=== PATIENT | female | born 1955 | race Caucasian/White ===

== ENCOUNTER 2016-08-24 14:29 | Inpatient (IN) | payer MEDICAID, OTHER ==
[~2016-08-24] VITALS: Ht 167.6 cm; Wt 180.4 kg
[~2016-08-24 14:29] MED LIST: BISO5TAB23; FURO40TA; INSUPOW; NORVAS
[2016-08-24] MEDS ORDERED: SODIUM CHLORIDE 0.9% 500 ML IV ONE (15:15)
[2016-08-24] MEDS ORDERED: LEVOFLOXACIN 500MG 100 ML IV ONE (15:15)
[2016-08-24] MEDS ORDERED: SODIUM CHLORIDE 0.9% 1,000 ML IV SCH (15:28)
[2016-08-24] MEDS ORDERED: LORazepam 0.5 MG TAB PO PRN (15:30)
[2016-08-24] MEDS ORDERED: OSELTAMIVIR 75 MG CAP PO ONE (15:30)
[2016-08-24] MEDS ORDERED: LACTULOSE 20Gm/30ML SOLN PO PRN (15:30)
[2016-08-24] MEDS ORDERED: DEXTROSE (50%) 50ML SYRG IV PRN (15:30)
[2016-08-24] MEDS ORDERED: TEMAZEPAM 15 MG CAP PO PRN (15:30)
[2016-08-24] MEDS ORDERED: NITROGLYCERIN 0.4 MG SL TAB SL PRN (15:30)
[2016-08-24] MEDS ORDERED: ALBUTEROL SULF 2.5 MG/0.5ML(0.5%) NEB SOLN NEB PRN (15:30)
[2016-08-24] MEDS ORDERED: cefTRIAXone 1GM/50ML D5W 50 ML IV ONE (15:30)
[2016-08-24] MEDS ORDERED: MORPHINE SULF INJ 2 MG/ML SYRINGE 1ML IV PRN ×2 (15:30)
[2016-08-24] MEDS ORDERED: ENOXAPARIN SOD 40 MG/0.4 ML SYRINGE SC SCH (15:41)
[2016-08-24 16:36] LABS: Basophils # (auto) 0 uL; Eosinophils # (auto) 0 uL; Hematocrit 38.8 % (36.0-46.0); Hemoglobin 13.2 g/dL (12.2-16.2); Lymphocytes # (auto) 0.2 uL; Lymphocytes % (auto) 2.3 % (10.0-50.0); Mean Corpuscular Hemoglobin 30.9 pg (28.0-32.0); Mean Corpuscular Hgb Conc. 33.9 g/dL (32.0-36.0); Mean Platelet Volume 9.4 fL (7.4-10.4); Monocytes # (auto) 0.1 uL; Monocytes % (auto) 1.7 % (0.0-12.0); Neutrophils # (auto) 7.8 uL; Platelet Count (auto) 155 10^3/uL (140-450); Red Cell Distribution Width 13.9 % (11.6-16.0); White Blood Cell 8.2 10^3/uL (4.4-10.8)
[2016-08-24 16:46] LABS: Albumin 3.1 g/dL (3.4-5.0); BUN/Creatinine Ratio 8.4; Calcium 8.3 mg/dL (8.5-10.1); Lactic Acid 5.4 mmol/L (0.4-2.0); Magnesium 1.5 mg/dL (1.6-2.6); Potassium 3.3 mmol/L (3.5-5.1)
[2016-08-24 16:50] LABS: Amylase 31 U/L (25-115)
[2016-08-24 16:51] LABS: Bilirubin, Total 0.7 mg/dL (0.2-1.0); Total Protein 6.9 g/dL (6.4-8.2)
[2016-08-24 17:02] LABS: B-Type Natriuretic Peptide 302.13 pg/mL (0-100); Temperature: 22.7 C (20.0-25.0)
[2016-08-24 17:13] LABS: REFLEX LACTIC ACID YES OR NO YES
[2016-08-24] MEDS: ACCU-CHEK COMFORT CURVE STRIP VI SCH ×2 (17:42→22:34)
[2016-08-24] MEDS: InsuLIN REG 1unit/0.01ml Soln (100units/ml) SC SCH ×2 (17:45→22:34)
[2016-08-24] MEDS ORDERED: BENA20TA4 PO (18:08)
[2016-08-24] MEDS ORDERED: METO25TA62 PO (18:08)
[2016-08-24] MEDS ORDERED: INSUINJ IJ (18:08)
[2016-08-24] MEDS ORDERED: ASPI81CH43 PO (18:08)
[2016-08-24] MEDS ORDERED: INSUINJ49 SC (18:08)
[2016-08-24] MEDS: AZITHROMYCIN 500MG/D5W 250ML 250 ML IV SCH (18:10)
[2016-08-24] MEDS: ALBUTEROL SULF 2.5 MG/0.5ML(0.5%) NEB SOLN NEB SCH (18:59)
[2016-08-24] MEDS ORDERED: ASPirin 81 mg TAB PO ONE (19:15)
[2016-08-24] MEDS ORDERED: FUROSEMIDE 20 MG/2 ML VIAL IV ONE (19:45)
[2016-08-24 21:15] LABS: Lactic Acid 3.6 mmol/L (0.4-2.0)
[2016-08-24 21:16] LABS: REFLEX LACTIC ACID YES OR NO NO
[2016-08-24 22:00] VITALS: BP 100/42
[2016-08-24] MEDS ORDERED: OSELTAMIVIR 75 MG CAP PO SCH (22:00)
[2016-08-24] MEDS: BENAZEPRIL HCL 10 MG TAB PO SCH (22:00)
[2016-08-24] MEDS ORDERED: CARVEDILOL 3.125 MG TAB PO SCH (22:00)
[2016-08-24] MEDS: POTASSIUM CHL 20 Meq TABLET PO SCH (22:08)
[2016-08-24] MEDS: SODIUM CHLOR 0.9% PF (SALINE LOCK) 10ML VIAL IV SCH (22:24)
[2016-08-24] MEDS: METOPROLOL SUCCINATE XL 50 MG TAB PO SCH (22:28)
[2016-08-24 23:02] VITALS: BP 100/42
[2016-08-25] VITALS (51 sets, daily range): BP systolic 75–151; BP diastolic 32–114
[2016-08-25] MEDS: ALBUTEROL SULF 2.5 MG/0.5ML(0.5%) NEB SOLN NEB SCH ×3 (00:25→11:50)
[2016-08-25 01:01] LABS: Hematocrit 38.7 % (36.0-46.0); Hemoglobin 13.1 g/dL (12.2-16.2)
[2016-08-25] MEDS ORDERED: ALBUTEROL SULF 2.5 MG/0.5ML(0.5%) NEB SOLN ONE (01:14)
[2016-08-25] MEDS ORDERED: ALBUTEROL SULF 2.5 MG/0.5ML(0.5%) NEB SOLN NEB ONE (01:30)
[2016-08-25] MEDS ORDERED: methylPREDNISolone SOD SUCC 125 MG/2 ML VL IV ONE (01:30)
[2016-08-25] MEDS ORDERED: methylPREDNISolone SOD SUCC 125 MG/2 ML VL ONE (01:42)
[2016-08-25] MEDS ORDERED: ETOMIDATE (2MG/ML) 20ML VIAL IV ONE ×2 (03:03→03:15)
[2016-08-25] MEDS ORDERED: SUCCINYLCHOLINE CHLORIDE 20 MG/ML 10ML VIAL IV ONE ×2 (03:04→03:15)
[2016-08-25] MEDS ORDERED: MIDAZOLAM DRIP 100 mg/100mL NS 100 ML IV ONE ×2 (03:20→06:19)
[2016-08-25] MEDS ORDERED: MIDAZOLAM INJECTION 20 MG in SODIUM CHL 0.9% 36 ML IV ONE ×2 (03:30→07:45)
[2016-08-25] MEDS: SODIUM CHLOR 0.9% PF (SALINE LOCK) 10ML VIAL IV SCH ×3 (06:00→21:41)
[2016-08-25 06:24] LABS: Hematocrit 36.6 % (36.0-46.0); Hemoglobin 12.5 g/dL (12.2-16.2)
[2016-08-25 06:37] LABS: Albumin 2.8 g/dL (3.4-5.0); BUN/Creatinine Ratio 9.2; Bilirubin, Total 0.8 mg/dL (0.2-1.0); Calcium 7.7 mg/dL (8.5-10.1); Potassium 4.2 mmol/L (3.5-5.1); Total Protein 6.3 g/dL (6.4-8.2)
[2016-08-25] MEDS ORDERED: SODIUM BICARBONATE 8.4 % INJ 50ML VIAL IV ONE (07:00)
[2016-08-25] MEDS: ACCU-CHEK COMFORT CURVE STRIP VI SCH ×5 (07:05→22:03)
[2016-08-25] MEDS: InsuLIN REG 1unit/0.01ml Soln (100units/ml) SC SCH ×2 (07:11→12:09)
[2016-08-25] MEDS: MIDAZOLAM DRIP 100 mg/100mL NS 100 ML IV SCH (07:40)
[2016-08-25] MEDS ORDERED: NOREPINEPHRINE BITARTRATE 250 ML IV ONE (07:56)
[2016-08-25] MEDS: NOREPINEPHRINE BITARTRATE 250 ML IV SCH ×2 (08:00→23:11)
[2016-08-25 08:07] LABS: B-Type Natriuretic Peptide 306.17 pg/mL (0-100)
[2016-08-25 08:28] LABS: Urine Bilirubin Negative (Negative); Urine Color Yellow (Yellow); Urine Glucose Normal (Normal); Urine Hyaline Cast MOD /lpf (0 - 2); Urine Ketone Negative (Negative); Urine Mucus FEW (None Seen); Urine Nitrite Negative (Negative); Urine RBC 4 /hpf (0 - 4); Urine Squamous Epithelial Cell MOD /hpf (<5); Urine Urobilinogen Normal (Negative); Urine WBC Clumps PRESENT /hpf (None Seen)
[2016-08-25 08:31] LABS: Urine Blood 1+ /uL (Negative)
[2016-08-25] MEDS ORDERED: cefTRIAXone 1GM/50ML D5W 50 ML IV SCH (09:00)
[2016-08-25] MEDS: FUROSEMIDE 40 MG/4 ML VIAL IV SCH ×2 (10:00→11:47)
[2016-08-25] MEDS ORDERED: SODIUM CHLORIDE 0.9% 1,000 ML IV SCH (10:15)
[2016-08-25] MEDS: ASPirin 81 mg TAB PO SCH (10:30)
[2016-08-25] MEDS: AZITHROMYCIN 500MG/D5W 250ML 250 ML IV SCH (10:30)
[2016-08-25] MEDS: POTASSIUM CHL 20 Meq TABLET PO SCH (10:30)
[2016-08-25] MEDS: PANTOPRAZOLE 40 MG TAB PO SCH (10:31)
[2016-08-25] MEDS: BENAZEPRIL HCL 10 MG TAB PO SCH ×2 (10:31→21:41)
[2016-08-25] MEDS: ENOXAPARIN SOD 30 MG/0.3 ML SYRINGE SC SCH (10:31)
[2016-08-25] MEDS: METOPROLOL SUCCINATE XL 50 MG TAB PO SCH (10:31)
[2016-08-25] MEDS: NITROGLYCERIN 0.2MG/HR TOPICAL PATCH TD SCH (10:31)
[2016-08-25] MEDS: methylPREDNISolone SOD SUCC 40 MG/ML VL IV SCH ×2 (10:38→21:41)
[2016-08-25] MEDS ORDERED: SODIUM CHLORIDE 0.9% 500 ML IV ONE ×2 (11:00→18:45)
[2016-08-25] MEDS: POTASSIUM CHL 10% (20 MEQ/15ML) ORAL SOLN PO SCH (11:48)
[2016-08-25] MEDS: ALBUMIN 25% 100 ML IV SCH ×2 (11:48→12:00)
[2016-08-25] MEDS: fentaNYL Drip 2500mCg/250mlNS 250 ML IV SCH (14:00)
[2016-08-25 14:07] LABS: INR 1.25 (0.9-1.15); Prothrombin Time 12.9 sec (9.37-12.3)
[2016-08-25] MEDS ORDERED: ALBUTEROL SULF 2.5 MG/0.5ML(0.5%) NEB SOLN NEB SCH (15:00)
[2016-08-25 15:09] LABS: REFLEX LACTIC ACID YES OR NO YES
[2016-08-25] MEDS: PIPERACILLIN-TAZOB 3.375GM 100 ML IV SCH ×2 (16:25→19:53)
[2016-08-25] MEDS: ACETAMINOPHEN 500 MG TAB PO PRN (16:28)
[2016-08-25] MEDS: SODIUM CHLORIDE 0.9% 1,000 ML IV SCH (18:00)
[2016-08-25] MEDS ORDERED: DEXTROSE (50%) 50ML SYRG IV PRN ×4 (18:45→23:30)
[2016-08-25] MEDS ORDERED: InsuLIN REG 1unit/0.01ml Soln (100units/ml) IV ONE (18:45)
[2016-08-25] MEDS: PROPOFOL 100 ML IV SCH (19:19)
[2016-08-25 19:28] LABS: Lactic Acid 2.9 mmol/L (0.4-2.0)
[2016-08-25 19:29] LABS: REFLEX LACTIC ACID YES OR NO NO
[2016-08-25] MEDS: LINEZOLID 600MG/300ML 300 ML IV SCH (19:43)
[2016-08-25] MEDS ORDERED: InsuLIN R (HUMAN) 100 UNITS in SODIUM CHL 0.9% 99 ML IV SCH ×3 (20:42→23:19)
[2016-08-25] MEDS ORDERED: ACCU-CHEK COMFORT CURVE STRIP VI SCH (23:00)
[2016-08-26] VITALS (105 sets, daily range): BP systolic 77–248; BP diastolic 36–248
[2016-08-26] MEDS ORDERED: InsuLIN REG 1unit/0.01ml Soln (100units/ml) SC SCH
[2016-08-26] MEDS ORDERED: ACCU-CHEK COMFORT CURVE STRIP VI SCH ×2
[2016-08-26] MEDS ORDERED: DEXTROSE (50%) 50ML SYRG IV PRN (00:15)
[2016-08-26] MEDS: ALBUTEROL SULF 2.5 MG/0.5ML(0.5%) NEB SOLN NEB SCH ×7 (00:37→18:22)
[2016-08-26] MEDS: IPRATROPIUM BROM 0.5 MG/2.5ML INH SOL NEB SCH ×4 (00:37→18:22)
[2016-08-26] MEDS: InsuLIN R (HUMAN) 100 UNITS in SODIUM CHL 0.9% 99 ML IV SCH ×5 (01:00→14:28)
[2016-08-26] MEDS: SODIUM CHLORIDE 0.9% 1,000 ML IV SCH ×3 (01:00→16:00)
[2016-08-26] MEDS: ACCU-CHEK COMFORT CURVE STRIP VI SCH ×23 (01:21→22:53)
[2016-08-26] MEDS: PIPERACILLIN-TAZOB 3.375GM 100 ML IV SCH ×2 (01:49→07:57)
[2016-08-26] MEDS: MIDAZOLAM DRIP 100 mg/100mL NS 100 ML IV SCH (03:56)
[2016-08-26 04:20] LABS: Hematocrit 37.1 % (36.0-46.0); Hemoglobin 13.1 g/dL (12.2-16.2); Mean Corpuscular Hemoglobin 32.3 pg (28.0-32.0); Mean Corpuscular Hgb Conc. 35.4 g/dL (32.0-36.0); Mean Corpuscular Volume 91.4 fL (80.0-100.0); Mean Platelet Volume 9.2 fL (7.4-10.4); Platelet Count (auto) 151 10^3/uL (140-450); Red Cell Distribution Width 14.2 % (11.6-16.0); SUSPECT VIEW TRANSMISSION; White Blood Cell 15.2 10^3/uL (4.4-10.8)
[2016-08-26] MEDS: LINEZOLID 600MG/300ML 300 ML IV SCH ×2 (04:24→17:16)
[2016-08-26 04:26] LABS: Metamyelocytes % 0; Myelocytes % 0; Promyelocytes % 0; Reactive Lymphocytes 0
[2016-08-26 04:54] LABS: Albumin 2.8 g/dL (3.4-5.0); Calcium 6.5 mg/dL (8.5-10.1); Potassium 4.1 mmol/L (3.5-5.1)
[2016-08-26 04:56] LABS: BUN/Creatinine Ratio 12.3
[2016-08-26 04:59] LABS: Bilirubin, Total 0.8 mg/dL (0.2-1.0); Total Protein 6.3 g/dL (6.4-8.2)
[2016-08-26 05:06] LABS: Burr Cells FEW; Platelet Estimate Adequate
[2016-08-26] MEDS: SODIUM CHLOR 0.9% PF (SALINE LOCK) 10ML VIAL IV SCH ×3 (06:10→21:59)
[2016-08-26] MEDS: AMIODARONE HCL 900 MG in DEXTROSE 500 ML IV SCH ×4 (06:42→22:00)
[2016-08-26] MEDS ORDERED: AMIODARONE HCL 150 MG in D5W 5% 100 ML IV ONE (06:45)
[2016-08-26] MEDS: METOPROLOL SUCCINATE XL 50 MG TAB PO SCH (07:41)
[2016-08-26] MEDS: BENAZEPRIL HCL 10 MG TAB PO SCH ×2 (07:42→22:00)
[2016-08-26] MEDS: NITROGLYCERIN 0.2MG/HR TOPICAL PATCH TD SCH (07:42)
[2016-08-26] MEDS: PANTOPRAZOLE 40 MG TAB PO SCH (07:57)
[2016-08-26] MEDS: ASPirin 81 mg TAB PO SCH (07:58)
[2016-08-26] MEDS: ENOXAPARIN SOD 30 MG/0.3 ML SYRINGE SC SCH (08:00)
[2016-08-26] MEDS: methylPREDNISolone SOD SUCC 40 MG/ML VL IV SCH ×2 (08:00→21:59)
[2016-08-26] MEDS: FUROSEMIDE 40 MG/4 ML VIAL IV SCH (08:00)
[2016-08-26] MEDS: POTASSIUM CHL 10% (20 MEQ/15ML) ORAL SOLN PO SCH (08:01)
[2016-08-26] MEDS: PROPOFOL 100 ML IV SCH (08:01)
[2016-08-26] MEDS: fentaNYL Drip 2500mCg/250mlNS 250 ML IV SCH (10:22)
[2016-08-26] MEDS ORDERED: PIPERACILLIN-TAZOB 2.25GM 50 ML IV SCH (12:00)
[2016-08-26] MEDS ORDERED: CALCIUM CHL 100MG/ML 1,000 MG in D5W 5% 100 ML IV ONE (12:30)
[2016-08-26] MEDS: PIPERACILLIN-TAZOB 2.25GM 50 ML IV SCH ×2 (14:31→19:41)
[2016-08-26 19:19] LABS: Calcium 6.9 mg/dL (8.5-10.1); Potassium 4.2 mmol/L (3.5-5.1)
[2016-08-27] VITALS (107 sets, daily range): BP systolic 84–166; BP diastolic 34–94
[2016-08-27] MEDS: IPRATROPIUM BROM 0.5 MG/2.5ML INH SOL NEB SCH ×4 (00:17→18:56)
[2016-08-27] MEDS: ACCU-CHEK COMFORT CURVE STRIP VI SCH ×11 (01:00→22:00)
[2016-08-27] MEDS: SODIUM CHLORIDE 0.9% 1,000 ML IV SCH ×3 (02:07→22:00)
[2016-08-27] MEDS: PIPERACILLIN-TAZOB 2.25GM 50 ML IV SCH ×4 (02:07→19:52)
[2016-08-27 03:48] LABS: Hematocrit 36.5 % (36.0-46.0); Hemoglobin 12.2 g/dL (12.2-16.2); Mean Corpuscular Hemoglobin 30.6 pg (28.0-32.0); Mean Corpuscular Hgb Conc. 33.4 g/dL (32.0-36.0); Mean Corpuscular Volume 91.4 fL (80.0-100.0); Mean Platelet Volume 9.1 fL (7.4-10.4); Platelet Count (auto) 122 10^3/uL (140-450); Red Cell Distribution Width 14.6 % (11.6-16.0); SUSPECT VIEW TRANSMISSION; White Blood Cell 13.7 10^3/uL (4.4-10.8)
[2016-08-27] MEDS: PROPOFOL 100 ML IV SCH ×2 (04:06→23:25)
[2016-08-27 04:29] LABS: Albumin 2.3 g/dL (3.4-5.0); BUN/Creatinine Ratio 11.9; Bilirubin, Total 0.6 mg/dL (0.2-1.0); Calcium 6.9 mg/dL (8.5-10.1); Potassium 4.2 mmol/L (3.5-5.1); Total Protein 5.9 g/dL (6.4-8.2)
[2016-08-27] MEDS: LINEZOLID 600MG/300ML 300 ML IV SCH ×2 (04:52→17:03)
[2016-08-27 05:06] LABS: Myelocytes % 0; Promyelocytes % 0; Reactive Lymphocytes 0
[2016-08-27] MEDS: SODIUM CHLOR 0.9% PF (SALINE LOCK) 10ML VIAL IV SCH ×3 (05:45→21:41)
[2016-08-27] MEDS: NOREPINEPHRINE BITARTRATE 250 ML IV SCH ×2 (05:45→19:56)
[2016-08-27 05:50] LABS: Metamyelocytes % 1
[2016-08-27 05:51] LABS: Burr Cells FEW; Platelet Estimate Adequate
[2016-08-27] MEDS: methylPREDNISolone SOD SUCC 40 MG/ML VL IV SCH ×2 (09:28→21:41)
[2016-08-27] MEDS: PANTOPRAZOLE 40 MG TAB PO SCH (09:28)
[2016-08-27] MEDS: FUROSEMIDE 40 MG/4 ML VIAL IV SCH (09:28)
[2016-08-27] MEDS: ASPirin 81 mg TAB PO SCH (09:28)
[2016-08-27] MEDS: ENOXAPARIN SOD 30 MG/0.3 ML SYRINGE SC SCH (09:29)
[2016-08-27] MEDS: POTASSIUM CHL 10% (20 MEQ/15ML) ORAL SOLN PO SCH (09:29)
[2016-08-27] MEDS ORDERED: Diabetisource AC 1 Liter GT SCH (10:00)
[2016-08-27] MEDS: BENAZEPRIL HCL 10 MG TAB PO SCH ×2 (10:00→21:41)
[2016-08-27] MEDS: NITROGLYCERIN 0.2MG/HR TOPICAL PATCH TD SCH (10:00)
[2016-08-27] MEDS ORDERED: DEXTROSE (50%) 50ML SYRG IV PRN (10:00)
[2016-08-27] MEDS: METOPROLOL SUCCINATE XL 50 MG TAB PO SCH (10:00)
[2016-08-27] MEDS ORDERED: ACCU-CHEK COMFORT CURVE STRIP VI SCH ×4 (10:15→18:00)
[2016-08-27] MEDS ORDERED: InsuLIN REG 1unit/0.01ml Soln (100units/ml) SC SCH ×4 (10:15→18:00)
[2016-08-27] MEDS ORDERED: HEPARIN SODIUM (PORCINE) 5000 UNITS/ML 1ML VIAL IV ONE (11:45)
[2016-08-27 11:54] LABS: INR 1.09 (0.9-1.15); Partial Thromboplastin Time 31.8 sec (22.64-33.71); Prothrombin Time 11.2 sec (9.37-12.3)
[2016-08-27] MEDS: fentaNYL Drip 2500mCg/250mlNS 250 ML IV SCH ×2 (14:59)
[2016-08-27] MEDS ORDERED: SODIUM BICARBONATE 8.4 % INJ 50ML VIAL IV ONE (15:45)
[2016-08-27] MEDS: AMIODARONE HCL 900 MG in DEXTROSE 500 ML IV SCH (16:36)
[2016-08-27] MEDS: MIDAZOLAM DRIP 100 mg/100mL NS 100 ML IV SCH ×2 (19:52)
[2016-08-27] MEDS: InsuLIN REG 1unit/0.01ml Soln (100units/ml) SC SCH (21:49)
[2016-08-28] VITALS (101 sets, daily range): BP systolic 86–182; BP diastolic 39–73
[2016-08-28] MEDS: IPRATROPIUM BROM 0.5 MG/2.5ML INH SOL NEB SCH ×4 (00:23→19:17)
[2016-08-28] MEDS: ACCU-CHEK COMFORT CURVE STRIP VI SCH ×17 (01:53→23:05)
[2016-08-28] MEDS: PIPERACILLIN-TAZOB 2.25GM 50 ML IV SCH ×2 (01:53→08:44)
[2016-08-28] MEDS: InsuLIN REG 1unit/0.01ml Soln (100units/ml) SC SCH ×3 (01:56→23:57)
[2016-08-28 04:33] LABS: Hematocrit 32.3 % (36.0-46.0); Hemoglobin 10.9 g/dL (12.2-16.2); Mean Corpuscular Hemoglobin 30.7 pg (28.0-32.0); Mean Corpuscular Hgb Conc. 33.8 g/dL (32.0-36.0); Mean Corpuscular Volume 90.6 fL (80.0-100.0); Mean Platelet Volume 9.8 fL (7.4-10.4); Platelet Count (auto) 97 10^3/uL (140-450); Red Cell Distribution Width 14.9 % (11.6-16.0); SUSPECT VIEW TRANSMISSION; White Blood Cell 11.5 10^3/uL (4.4-10.8)
[2016-08-28 04:50] LABS: BUN/Creatinine Ratio 12.7; Calcium 6.4 mg/dL (8.5-10.1); Potassium 4.7 mmol/L (3.5-5.1)
[2016-08-28 04:55] LABS: Metamyelocytes % 0; Myelocytes % 0; Promyelocytes % 0; Reactive Lymphocytes 0
[2016-08-28] MEDS: LINEZOLID 600MG/300ML 300 ML IV SCH (05:03)
[2016-08-28] MEDS: fentaNYL Drip 2500mCg/250mlNS 250 ML IV SCH ×3 (05:03→20:05)
[2016-08-28 05:35] LABS: Platelet Estimate Decreased; RBC Morphology Normal
[2016-08-28] MEDS: SODIUM CHLOR 0.9% PF (SALINE LOCK) 10ML VIAL IV SCH ×3 (05:51→22:07)
[2016-08-28] MEDS ORDERED: InsuLIN R (HUMAN) 100 UNITS in SODIUM CHL 0.9% 99 ML IV SCH ×4 (08:30→16:06)
[2016-08-28] MEDS ORDERED: LEVOFLOXACIN 500MG 100 ML IV SCH (10:00)
[2016-08-28] MEDS: ASPirin 81 mg TAB PO SCH (10:09)
[2016-08-28] MEDS: PANTOPRAZOLE 40 MG TAB PO SCH (10:09)
[2016-08-28] MEDS ORDERED: LEVOFLOXACIN 750MG 150 ML IV ONE (10:15)
[2016-08-28] MEDS: FUROSEMIDE 40 MG/4 ML VIAL IV SCH (11:07)
[2016-08-28] MEDS: POTASSIUM CHL 10% (20 MEQ/15ML) ORAL SOLN PO SCH (11:07)
[2016-08-28] MEDS: BENAZEPRIL HCL 10 MG TAB PO SCH ×2 (11:07→22:00)
[2016-08-28] MEDS: METOPROLOL SUCCINATE XL 50 MG TAB PO SCH (11:08)
[2016-08-28] MEDS: NITROGLYCERIN 0.2MG/HR TOPICAL PATCH TD SCH (11:08)
[2016-08-28] MEDS: ENOXAPARIN SOD 30 MG/0.3 ML SYRINGE SC SCH (11:08)
[2016-08-28] MEDS ORDERED: HEPARIN IN NS 1000U/500ML (2UNIT/ML) 500 ML BAG IV ONE (13:15)
[2016-08-28] MEDS ORDERED: SODIUM CHLORIDE 0.9% 2,000 ML IV ONE (14:15)
[2016-08-28] MEDS: CLINDAMYCIN 300MG IV 50 ML IV SCH ×2 (15:13→20:10)
[2016-08-28] MEDS: NOREPINEPHRINE BITARTRATE 250 ML IV SCH (15:16)
[2016-08-28] MEDS: MIDAZOLAM DRIP 100 mg/100mL NS 100 ML IV SCH (15:20)
[2016-08-28] MEDS: SODIUM CHLORIDE 0.9% 1,000 ML IV SCH (18:53)
[2016-08-28] MEDS: AMIODARONE HCL 200 MG TAB PO SCH (22:07)
[2016-08-28] MEDS: INSULIN DETEMIR(LEVEMIR) 1unit/0.01ml Soln (100units/ml) SC SCH (22:09)
[2016-08-28] MEDS ORDERED: DEXTROSE (50%) 50ML SYRG IV PRN (23:15)
[2016-08-29] VITALS (104 sets, daily range): BP systolic 69–297; BP diastolic 35–137
[2016-08-29] MEDS: ACCU-CHEK COMFORT CURVE STRIP VI SCH ×7 (00:11→20:00)
[2016-08-29] MEDS: SODIUM CHLORIDE 0.9% 1,000 ML IV SCH ×4 (01:00→21:00)
[2016-08-29] MEDS: IPRATROPIUM BROM 0.5 MG/2.5ML INH SOL NEB SCH ×4 (01:14→23:57)
[2016-08-29 04:21] LABS: Basophils # (auto) 0 uL; Eosinophils # (auto) 0 uL; Eosinophils % (auto) 0.1 % (0.0-7.0); Hematocrit 29.5 % (36.0-46.0); Hemoglobin 10.2 g/dL (12.2-16.2); Lymphocytes % (auto) 10.3 % (10.0-50.0); Mean Corpuscular Hemoglobin 31.1 pg (28.0-32.0); Mean Corpuscular Hgb Conc. 34.6 g/dL (32.0-36.0); Mean Platelet Volume 9.6 fL (7.4-10.4); Monocytes # (auto) 0.7 uL; Monocytes % (auto) 6.9 % (0.0-12.0); Neutrophils % (auto) 82.7 % (37.0-80.0); Platelet Count (auto) 81 10^3/uL (140-450); Red Cell Distribution Width 14.7 % (11.6-16.0); White Blood Cell 9.7 10^3/uL (4.4-10.8)
[2016-08-29] MEDS: CLINDAMYCIN 300MG IV 50 ML IV SCH ×3 (04:27→20:15)
[2016-08-29] MEDS: InsuLIN REG 1unit/0.01ml Soln (100units/ml) SC SCH ×5 (04:32→20:00)
[2016-08-29 05:37] LABS: BUN/Creatinine Ratio 12.9; Bilirubin, Total 0.5 mg/dL (0.2-1.0); Calcium 6.8 mg/dL (8.5-10.1); Potassium 4.6 mmol/L (3.5-5.1); Total Protein 5.1 g/dL (6.4-8.2)
[2016-08-29] MEDS: SODIUM CHLOR 0.9% PF (SALINE LOCK) 10ML VIAL IV SCH ×3 (05:41→21:59)
[2016-08-29] MEDS: AMIODARONE HCL 200 MG TAB PO SCH ×3 (05:41→21:59)
[2016-08-29] MEDS: ASPirin 81 mg TAB PO SCH (09:32)
[2016-08-29] MEDS: METOPROLOL SUCCINATE XL 50 MG TAB PO SCH (09:32)
[2016-08-29] MEDS: PANTOPRAZOLE 40 MG TAB PO SCH (09:32)
[2016-08-29] MEDS: POTASSIUM CHL 10% (20 MEQ/15ML) ORAL SOLN PO SCH (09:32)
[2016-08-29] MEDS: BENAZEPRIL HCL 10 MG TAB PO SCH ×2 (09:32→21:59)
[2016-08-29] MEDS: FUROSEMIDE 40 MG/4 ML VIAL IV SCH (09:32)
[2016-08-29] MEDS: ENOXAPARIN SOD 30 MG/0.3 ML SYRINGE SC SCH (09:33)
[2016-08-29] MEDS: NITROGLYCERIN 0.2MG/HR TOPICAL PATCH TD SCH (09:33)
[2016-08-29] MEDS ORDERED: Diabetisource AC 1 Liter GT SCH ×2 (14:00)
[2016-08-29] MEDS: fentaNYL Drip 2500mCg/250mlNS 250 ML IV SCH (14:01)
[2016-08-29] MEDS: FREE WATER GT SCH (18:25)
[2016-08-29] MEDS: INSULIN DETEMIR(LEVEMIR) 1unit/0.01ml Soln (100units/ml) SC SCH (21:52)
[2016-08-29] MEDS: NYSTATIN TOPICAL POWDER 15GM TOP SCH (22:00)
[2016-08-30] VITALS (103 sets, daily range): BP systolic 82–176; BP diastolic 33–119
[2016-08-30] MEDS: InsuLIN REG 1unit/0.01ml Soln (100units/ml) SC SCH ×6 (00:35→20:00)
[2016-08-30] MEDS: ACCU-CHEK COMFORT CURVE STRIP VI SCH ×6 (04:00→19:46)
[2016-08-30] MEDS: CLINDAMYCIN 300MG IV 50 ML IV SCH ×3 (04:00→19:45)
[2016-08-30 04:24] LABS: Basophils # (auto) 0 uL; Basophils % (auto) 0.2 % (0.0-2.0); Eosinophils # (auto) 0 uL; Eosinophils % (auto) 0.2 % (0.0-7.0); Hematocrit 29.5 % (36.0-46.0); Hemoglobin 10.1 g/dL (12.2-16.2); Lymphocytes # (auto) 1.7 uL; Lymphocytes % (auto) 16.8 % (10.0-50.0); Mean Corpuscular Hemoglobin 30.9 pg (28.0-32.0); Mean Corpuscular Hgb Conc. 34.4 g/dL (32.0-36.0); Mean Corpuscular Volume 89.9 fL (80.0-100.0); Mean Platelet Volume 9.8 fL (7.4-10.4); Monocytes # (auto) 0.8 uL; Monocytes % (auto) 7.6 % (0.0-12.0); Neutrophils # (auto) 7.6 uL; Neutrophils % (auto) 75.2 % (37.0-80.0); Platelet Count (auto) 87 10^3/uL (140-450); Red Cell Distribution Width 14.8 % (11.6-16.0); White Blood Cell 10.1 10^3/uL (4.4-10.8)
[2016-08-30 04:28] LABS: Potassium 4.4 mmol/L (3.5-5.1)
[2016-08-30 04:38] LABS: BUN/Creatinine Ratio 14.5; Bilirubin, Total 0.4 mg/dL (0.2-1.0); Total Protein 5.1 g/dL (6.4-8.2)
[2016-08-30] MEDS: fentaNYL Drip 2500mCg/250mlNS 250 ML IV SCH ×3 (04:57→12:50)
[2016-08-30] MEDS: NYSTATIN TOPICAL POWDER 15GM TOP SCH ×3 (06:00→21:35)
[2016-08-30] MEDS: FREE WATER GT SCH ×4 (06:00→18:10)
[2016-08-30] MEDS: AMIODARONE HCL 200 MG TAB PO SCH ×3 (06:00→21:35)
[2016-08-30] MEDS: SODIUM CHLOR 0.9% PF (SALINE LOCK) 10ML VIAL IV SCH ×3 (06:00→21:34)
[2016-08-30] MEDS: IPRATROPIUM BROM 0.5 MG/2.5ML INH SOL NEB SCH ×3 (06:46→18:57)
[2016-08-30] MEDS ORDERED: HEPARIN 1,000 UNITS/ml 1ML VIAL IV ONE (07:00)
[2016-08-30] MEDS: MIDAZOLAM DRIP 100 mg/100mL NS 100 ML IV SCH (07:40)
[2016-08-30] MEDS: NOREPINEPHRINE BITARTRATE 250 ML IV SCH ×2 (08:00→12:49)
[2016-08-30] MEDS: ENOXAPARIN SOD 30 MG/0.3 ML SYRINGE SC SCH (10:00)
[2016-08-30] MEDS: NITROGLYCERIN 0.2MG/HR TOPICAL PATCH TD SCH (10:00)
[2016-08-30] MEDS: METOPROLOL SUCCINATE XL 50 MG TAB PO SCH (10:00)
[2016-08-30] MEDS: ASPirin 81 mg TAB PO SCH (10:00)
[2016-08-30] MEDS: FUROSEMIDE 40 MG/4 ML VIAL IV SCH (10:13)
[2016-08-30] MEDS: PANTOPRAZOLE 40 MG TAB PO SCH (10:13)
[2016-08-30] MEDS: LEVOFLOXACIN 500MG 100 ML IV SCH (10:13)
[2016-08-30] MEDS: POTASSIUM CHL 10% (20 MEQ/15ML) ORAL SOLN PO SCH (10:15)
[2016-08-30] MEDS: INSULIN DETEMIR(LEVEMIR) 1unit/0.01ml Soln (100units/ml) SC SCH (22:00)
[2016-08-31] VITALS (109 sets, daily range): BP systolic 50–192; BP diastolic 35–271
[2016-08-31] MEDS: IPRATROPIUM BROM 0.5 MG/2.5ML INH SOL NEB SCH ×4 (00:23→18:38)
[2016-08-31] MEDS: ACCU-CHEK COMFORT CURVE STRIP VI SCH ×6 (03:44→20:00)
[2016-08-31] MEDS: CLINDAMYCIN 300MG IV 50 ML IV SCH ×3 (03:45→21:18)
[2016-08-31] MEDS: InsuLIN REG 1unit/0.01ml Soln (100units/ml) SC SCH ×6 (04:00→20:00)
[2016-08-31 04:27] LABS: Albumin 1.9 g/dL (3.4-5.0); Basophils # (auto) 0 uL; Basophils % (auto) 0.2 % (0.0-2.0); Calcium 7.5 mg/dL (8.5-10.1); Eosinophils # (auto) 0.1 uL; Eosinophils % (auto) 1.6 % (0.0-7.0); Hematocrit 28.2 % (36.0-46.0); Hemoglobin 9.8 g/dL (12.2-16.2); Lymphocytes # (auto) 1.4 uL; Lymphocytes % (auto) 25.5 % (10.0-50.0); Mean Corpuscular Hemoglobin 31.1 pg (28.0-32.0); Mean Corpuscular Hgb Conc. 34.8 g/dL (32.0-36.0); Mean Corpuscular Volume 89.3 fL (80.0-100.0); Mean Platelet Volume 9.9 fL (7.4-10.4); Monocytes # (auto) 0.5 uL; Monocytes % (auto) 8.3 % (0.0-12.0); Neutrophils # (auto) 3.5 uL; Neutrophils % (auto) 64.4 % (37.0-80.0); Platelet Count (auto) 83 10^3/uL (140-450); Potassium 4.7 mmol/L (3.5-5.1); Red Cell Distribution Width 14.5 % (11.6-16.0); White Blood Cell 5.5 10^3/uL (4.4-10.8)
[2016-08-31 04:30] LABS: BUN/Creatinine Ratio 13.6; Bilirubin, Direct 0.2 mg/dL (0-0.2); Bilirubin, Total 0.5 mg/dL (0.2-1.0); Total Protein 4.8 g/dL (6.4-8.2)
[2016-08-31] MEDS: FREE WATER GT SCH ×4 (05:15→18:00)
[2016-08-31] MEDS: SODIUM CHLOR 0.9% PF (SALINE LOCK) 10ML VIAL IV SCH ×3 (05:15→22:03)
[2016-08-31] MEDS: NYSTATIN TOPICAL POWDER 15GM TOP SCH ×3 (05:16→22:03)
[2016-08-31] MEDS: AMIODARONE HCL 200 MG TAB PO SCH ×3 (05:16→22:10)
[2016-08-31] MEDS: MIDAZOLAM DRIP 100 mg/100mL NS 100 ML IV SCH (07:40)
[2016-08-31] MEDS: NITROGLYCERIN 0.2MG/HR TOPICAL PATCH TD SCH (10:00)
[2016-08-31] MEDS: ASPirin 81 mg TAB PO SCH (10:00)
[2016-08-31] MEDS: ENOXAPARIN SOD 30 MG/0.3 ML SYRINGE SC SCH (10:00)
[2016-08-31] MEDS: FUROSEMIDE 40 MG/4 ML VIAL IV SCH (10:30)
[2016-08-31] MEDS: PANTOPRAZOLE 40 MG TAB PO SCH (10:30)
[2016-08-31] MEDS: POTASSIUM CHL 10% (20 MEQ/15ML) ORAL SOLN PO SCH (10:31)
[2016-08-31] MEDS: METOPROLOL SUCCINATE XL 50 MG TAB PO SCH (10:34)
[2016-08-31] MEDS: fentaNYL Drip 2500mCg/250mlNS 250 ML IV SCH (13:28)
[2016-08-31] MEDS: INSULIN DETEMIR(LEVEMIR) 1unit/0.01ml Soln (100units/ml) SC SCH (22:13)
[2016-09-01] VITALS (100 sets, daily range): BP systolic 112–254; BP diastolic 49–104
[2016-09-01] MEDS: IPRATROPIUM BROM 0.5 MG/2.5ML INH SOL NEB SCH ×4 (00:23→19:15)
[2016-09-01] MEDS: ACCU-CHEK COMFORT CURVE STRIP VI SCH ×6 (04:00→20:00)
[2016-09-01] MEDS: InsuLIN REG 1unit/0.01ml Soln (100units/ml) SC SCH ×6 (04:00→20:00)
[2016-09-01 04:16] LABS: Basophils # (auto) 0 uL; Basophils % (auto) 0.1 % (0.0-2.0); Eosinophils # (auto) 0.1 uL; Eosinophils % (auto) 2.1 % (0.0-7.0); Hemoglobin 9.9 g/dL (12.2-16.2); Lymphocytes # (auto) 1.5 uL; Lymphocytes % (auto) 24.8 % (10.0-50.0); Mean Corpuscular Hemoglobin 30.6 pg (28.0-32.0); Mean Corpuscular Hgb Conc. 34.3 g/dL (32.0-36.0); Mean Corpuscular Volume 89.3 fL (80.0-100.0); Mean Platelet Volume 9.6 fL (7.4-10.4); Monocytes # (auto) 0.4 uL; Monocytes % (auto) 6.8 % (0.0-12.0); Neutrophils # (auto) 3.9 uL; Neutrophils % (auto) 66.2 % (37.0-80.0); Platelet Count (auto) 107 10^3/uL (140-450); Red Cell Distribution Width 14.3 % (11.6-16.0); White Blood Cell 5.9 10^3/uL (4.4-10.8)
[2016-09-01] MEDS: CLINDAMYCIN 300MG IV 50 ML IV SCH ×3 (04:24→21:00)
[2016-09-01 04:35] LABS: Albumin 1.9 g/dL (3.4-5.0); Calcium 8.1 mg/dL (8.5-10.1); Potassium 5.3 mmol/L (3.5-5.1)
[2016-09-01 04:43] LABS: BUN/Creatinine Ratio 14.8; Bilirubin, Total 0.5 mg/dL (0.2-1.0); Total Protein 5.2 g/dL (6.4-8.2)
[2016-09-01] MEDS: FREE WATER GT SCH ×4 (06:08→17:14)
[2016-09-01] MEDS: SODIUM CHLOR 0.9% PF (SALINE LOCK) 10ML VIAL IV SCH ×3 (06:08→22:23)
[2016-09-01] MEDS: NYSTATIN TOPICAL POWDER 15GM TOP SCH ×3 (06:17→22:24)
[2016-09-01] MEDS: AMIODARONE HCL 200 MG TAB PO SCH ×3 (06:17→22:39)
[2016-09-01] MEDS: MIDAZOLAM DRIP 100 mg/100mL NS 100 ML IV SCH (07:40)
[2016-09-01] MEDS: NOREPINEPHRINE BITARTRATE 250 ML IV SCH (08:00)
[2016-09-01] MEDS: POTASSIUM CHL 10% (20 MEQ/15ML) ORAL SOLN PO SCH (10:00)
[2016-09-01] MEDS: NITROGLYCERIN 0.2MG/HR TOPICAL PATCH TD SCH (10:00)
[2016-09-01] MEDS: fentaNYL Drip 2500mCg/250mlNS 250 ML IV SCH (12:49)
[2016-09-01] MEDS: LEVOFLOXACIN 500MG 100 ML IV SCH (14:41)
[2016-09-01] MEDS: ENOXAPARIN SOD 30 MG/0.3 ML SYRINGE SC SCH (14:41)
[2016-09-01] MEDS: ASPirin 81 mg TAB PO SCH (14:41)
[2016-09-01] MEDS: FUROSEMIDE 40 MG/4 ML VIAL IV SCH (14:41)
[2016-09-01] MEDS: METOPROLOL SUCCINATE XL 50 MG TAB PO SCH (14:41)
[2016-09-01] MEDS ORDERED: OMEPRAZOLE 20MG/10ML ORAL SUSP GT SCH (14:48)
[2016-09-01] MEDS: HYDROcodone-ACET 5/325MG TAB PO PRN (17:14)
[2016-09-01] MEDS: LABETALOL HCL 5 MG/ML 4ML SYRINGE IV PRN (17:30)
[2016-09-01] MEDS: INSULIN DETEMIR(LEVEMIR) 1unit/0.01ml Soln (100units/ml) SC SCH (22:00)
[2016-09-02] VITALS (72 sets, daily range): BP systolic 136–219; BP diastolic 52–110
[2016-09-02] MEDS: IPRATROPIUM BROM 0.5 MG/2.5ML INH SOL NEB SCH ×4 (00:23→18:37)
[2016-09-02] MEDS: InsuLIN REG 1unit/0.01ml Soln (100units/ml) SC SCH ×6 (04:00→19:40)
[2016-09-02] MEDS: ACCU-CHEK COMFORT CURVE STRIP VI SCH ×6 (04:00→19:40)
[2016-09-02] MEDS: CLINDAMYCIN 300MG IV 50 ML IV SCH ×3 (04:00→19:40)
[2016-09-02 04:30] LABS: Basophils # (auto) 0 uL; Basophils % (auto) 0.2 % (0.0-2.0); Eosinophils # (auto) 0.1 uL; Eosinophils % (auto) 1.7 % (0.0-7.0); Hematocrit 28.7 % (36.0-46.0); Hemoglobin 9.8 g/dL (12.2-16.2); Lymphocytes # (auto) 1.2 uL; Lymphocytes % (auto) 17.9 % (10.0-50.0); Mean Corpuscular Hemoglobin 30.5 pg (28.0-32.0); Mean Corpuscular Hgb Conc. 34.1 g/dL (32.0-36.0); Mean Corpuscular Volume 89.3 fL (80.0-100.0); Mean Platelet Volume 9.1 fL (7.4-10.4); Monocytes # (auto) 0.6 uL; Monocytes % (auto) 8.8 % (0.0-12.0); Neutrophils # (auto) 4.8 uL; Neutrophils % (auto) 71.4 % (37.0-80.0); Platelet Count (auto) 115 10^3/uL (140-450); Red Cell Distribution Width 14.2 % (11.6-16.0); White Blood Cell 6.8 10^3/uL (4.4-10.8)
[2016-09-02 04:46] LABS: Calcium 7.8 mg/dL (8.5-10.1)
[2016-09-02 04:51] LABS: BUN/Creatinine Ratio 13.3; Bilirubin, Total 0.5 mg/dL (0.2-1.0); Total Protein 5.6 g/dL (6.4-8.2)
[2016-09-02] MEDS: FREE WATER GT SCH ×4 (05:42→17:25)
[2016-09-02] MEDS: AMIODARONE HCL 200 MG TAB PO SCH ×3 (05:47→22:00)
[2016-09-02] MEDS: NYSTATIN TOPICAL POWDER 15GM TOP SCH ×3 (05:47→22:48)
[2016-09-02] MEDS: SODIUM CHLOR 0.9% PF (SALINE LOCK) 10ML VIAL IV SCH ×3 (06:03→22:48)
[2016-09-02] MEDS: MIDAZOLAM DRIP 100 mg/100mL NS 100 ML IV SCH (07:40)
[2016-09-02] MEDS: NOREPINEPHRINE BITARTRATE 250 ML IV SCH (08:00)
[2016-09-02] MEDS: LABETALOL HCL 5 MG/ML 4ML SYRINGE IV PRN (08:34)
[2016-09-02] MEDS: NITROGLYCERIN 0.2MG/HR TOPICAL PATCH TD SCH (10:00)
[2016-09-02] MEDS: POTASSIUM CHL 10% (20 MEQ/15ML) ORAL SOLN PO SCH (10:00)
[2016-09-02] MEDS: PANTOPRAZOLE SODIUM 40 MG/10 ML VIAL IV SCH (10:14)
[2016-09-02] MEDS: FUROSEMIDE 40 MG/4 ML VIAL IV SCH (10:15)
[2016-09-02] MEDS: ENOXAPARIN SOD 30 MG/0.3 ML SYRINGE SC SCH (10:15)
[2016-09-02] MEDS: ASPirin 81 mg TAB PO SCH (12:10)
[2016-09-02] MEDS: BUMETANIDE (0.25 MG/ML) INJ 10ML IV SCH (12:10)
[2016-09-02] MEDS ORDERED: NIFEdipine ER 30 MG TAB PO ONE (12:30)
[2016-09-02] MEDS: METOPROLOL SUCCINATE XL 50 MG TAB PO SCH (12:58)
[2016-09-02] MEDS: fentaNYL Drip 2500mCg/250mlNS 250 ML IV SCH (13:28)
[2016-09-02] MEDS: PROMETHAZINE HCL 25 MG/ML 1ML IV PRN (16:56)
[2016-09-02] MEDS: INSULIN DETEMIR(LEVEMIR) 1unit/0.01ml Soln (100units/ml) SC SCH (22:49)
[2016-09-03] VITALS (36 sets, daily range): BP systolic 87–157; BP diastolic 44–105
[2016-09-03] MEDS: IPRATROPIUM BROM 0.5 MG/2.5ML INH SOL NEB SCH ×4 (00:11→19:19)
[2016-09-03] MEDS: HYDROcodone-ACET 5/325MG TAB PO PRN (01:37)
[2016-09-03] MEDS: CLINDAMYCIN 300MG IV 50 ML IV SCH ×3 (03:40→20:00)
[2016-09-03] MEDS: InsuLIN REG 1unit/0.01ml Soln (100units/ml) SC SCH ×6 (03:41→20:00)
[2016-09-03] MEDS: ACCU-CHEK COMFORT CURVE STRIP VI SCH ×6 (03:46→20:00)
[2016-09-03 04:08] LABS: Basophils # (auto) 0 uL; Basophils % (auto) 0.2 % (0.0-2.0); Eosinophils # (auto) 0.2 uL; Eosinophils % (auto) 1.7 % (0.0-7.0); Hematocrit 28.5 % (36.0-46.0); Hemoglobin 9.9 g/dL (12.2-16.2); Lymphocytes # (auto) 1.2 uL; Lymphocytes % (auto) 10.2 % (10.0-50.0); Mean Corpuscular Hemoglobin 30.6 pg (28.0-32.0); Mean Corpuscular Hgb Conc. 34.6 g/dL (32.0-36.0); Mean Corpuscular Volume 88.5 fL (80.0-100.0); Monocytes % (auto) 8.8 % (0.0-12.0); Neutrophils # (auto) 9.1 uL; Neutrophils % (auto) 79.1 % (37.0-80.0); Platelet Count (auto) 169 10^3/uL (140-450); Red Cell Distribution Width 13.9 % (11.6-16.0); White Blood Cell 11.5 10^3/uL (4.4-10.8)
[2016-09-03 04:33] LABS: Albumin 2.2 g/dL (3.4-5.0); BUN/Creatinine Ratio 13.4; Calcium 8.1 mg/dL (8.5-10.1); Potassium 5.4 mmol/L (3.5-5.1)
[2016-09-03 04:35] LABS: Bilirubin, Total 0.3 mg/dL (0.2-1.0); Total Protein 5.7 g/dL (6.4-8.2)
[2016-09-03] MEDS: FREE WATER GT SCH ×2 (05:42)
[2016-09-03] MEDS: SODIUM CHLOR 0.9% PF (SALINE LOCK) 10ML VIAL IV SCH ×3 (05:43→22:20)
[2016-09-03] MEDS: NYSTATIN TOPICAL POWDER 15GM TOP SCH ×3 (05:45→22:21)
[2016-09-03] MEDS: MIDAZOLAM DRIP 100 mg/100mL NS 100 ML IV SCH (05:45)
[2016-09-03] MEDS: NOREPINEPHRINE BITARTRATE 250 ML IV SCH (05:46)
[2016-09-03] MEDS: AMIODARONE HCL 200 MG TAB PO SCH ×3 (06:26→22:20)
[2016-09-03] MEDS: POTASSIUM CHL 10% (20 MEQ/15ML) ORAL SOLN PO SCH (10:00)
[2016-09-03] MEDS: NITROGLYCERIN 0.2MG/HR TOPICAL PATCH TD SCH (10:00)
[2016-09-03] MEDS: BUMETANIDE (0.25 MG/ML) INJ 10ML IV SCH (10:08)
[2016-09-03] MEDS: PANTOPRAZOLE SODIUM 40 MG/10 ML VIAL IV SCH (10:09)
[2016-09-03] MEDS: LEVOFLOXACIN 500MG 100 ML IV SCH (10:09)
[2016-09-03] MEDS: ASPirin 81 mg TAB PO SCH (10:09)
[2016-09-03] MEDS: NIFEdipine ER 30 MG TAB PO SCH (10:11)
[2016-09-03] MEDS: METOPROLOL SUCCINATE XL 50 MG TAB PO SCH (10:12)
[2016-09-03] MEDS: ENOXAPARIN SOD 30 MG/0.3 ML SYRINGE SC SCH (10:12)
[2016-09-03] MEDS: INSULIN DETEMIR(LEVEMIR) 1unit/0.01ml Soln (100units/ml) SC SCH (22:00)
[2016-09-03] MEDS: ATORVASTATIN 20 MG TAB PO SCH (22:20)
[2016-09-04] VITALS (46 sets, daily range): BP systolic 111–157; BP diastolic 37–69
[2016-09-04] MEDS: InsuLIN REG 1unit/0.01ml Soln (100units/ml) SC SCH ×7 (00:17→23:46)
[2016-09-04] MEDS: ACCU-CHEK COMFORT CURVE STRIP VI SCH ×7 (00:27→23:43)
[2016-09-04] MEDS: HYDROcodone-ACET 5/325MG TAB PO PRN (00:30)
[2016-09-04] MEDS: IPRATROPIUM BROM 0.5 MG/2.5ML INH SOL NEB SCH ×4 (00:31→19:33)
[2016-09-04 03:59] LABS: Basophils # (auto) 0 uL; Basophils % (auto) 0.1 % (0.0-2.0); Eosinophils # (auto) 0.2 uL; Eosinophils % (auto) 1.6 % (0.0-7.0); Hematocrit 28.8 % (36.0-46.0); Lymphocytes # (auto) 1.2 uL; Lymphocytes % (auto) 10.2 % (10.0-50.0); Mean Corpuscular Hemoglobin 30.8 pg (28.0-32.0); Mean Corpuscular Hgb Conc. 34.6 g/dL (32.0-36.0); Mean Platelet Volume 8.8 fL (7.4-10.4); Monocytes # (auto) 0.9 uL; Monocytes % (auto) 7.3 % (0.0-12.0); Neutrophils # (auto) 9.8 uL; Neutrophils % (auto) 80.8 % (37.0-80.0); Platelet Count (auto) 204 10^3/uL (140-450); Red Cell Distribution Width 13.7 % (11.6-16.0); White Blood Cell 12.2 10^3/uL (4.4-10.8)
[2016-09-04 04:25] LABS: Albumin 2.2 g/dL (3.4-5.0); Calcium 7.6 mg/dL (8.5-10.1); Potassium 4.5 mmol/L (3.5-5.1)
[2016-09-04 04:28] LABS: Bilirubin, Total 0.6 mg/dL (0.2-1.0); Total Protein 5.8 g/dL (6.4-8.2)
[2016-09-04] MEDS: CLINDAMYCIN 300MG IV 50 ML IV SCH (04:30)
[2016-09-04 04:39] LABS: BUN/Creatinine Ratio 13.1
[2016-09-04] MEDS: AMIODARONE HCL 200 MG TAB PO SCH ×3 (05:15→22:19)
[2016-09-04] MEDS: NYSTATIN TOPICAL POWDER 15GM TOP SCH ×3 (05:15→22:00)
[2016-09-04] MEDS: SODIUM CHLOR 0.9% PF (SALINE LOCK) 10ML VIAL IV SCH ×3 (05:15→22:19)
[2016-09-04] MEDS ORDERED: SODIUM CHL 0.9% 1000 ML BAG XX ONE (08:00)
[2016-09-04] MEDS ORDERED: EPOETIN ALFA 10,000 UNIT/1 ML VIAL IV ONE (08:00)
[2016-09-04] MEDS: BUMETANIDE (0.25 MG/ML) INJ 10ML IV SCH (09:46)
[2016-09-04] MEDS: PANTOPRAZOLE SODIUM 40 MG/10 ML VIAL IV SCH (09:46)
[2016-09-04] MEDS: POTASSIUM CHL 10% (20 MEQ/15ML) ORAL SOLN PO SCH (09:47)
[2016-09-04] MEDS: ASPirin 81 mg TAB PO SCH (09:47)
[2016-09-04] MEDS: NIFEdipine ER 30 MG TAB PO SCH (09:48)
[2016-09-04] MEDS: METOPROLOL SUCCINATE XL 50 MG TAB PO SCH (09:49)
[2016-09-04] MEDS: ENOXAPARIN SOD 30 MG/0.3 ML SYRINGE SC SCH (09:53)
[2016-09-04] MEDS: NITROGLYCERIN 0.2MG/HR TOPICAL PATCH TD SCH (10:00)
[2016-09-04] MEDS ORDERED: VANCOMYCIN PER PHARMACY 0 MG IV SCH (10:00)
[2016-09-04] MEDS ORDERED: ALBUMIN 25% 100 ML IV PRN (11:30)
[2016-09-04] MEDS ORDERED: VANCOMYCIN 1,500 MG in D5W 5% 250 ML IV ONE (15:00)
[2016-09-04] MEDS: PRO-STAT 64 30ML PO SCH (18:00)
[2016-09-04] MEDS: ATORVASTATIN 20 MG TAB PO SCH (22:19)
[2016-09-04] MEDS: INSULIN DETEMIR(LEVEMIR) 1unit/0.01ml Soln (100units/ml) SC SCH (22:27)
[2016-09-04 22:59] LABS: Basophils # (auto) 0 uL; Basophils % (auto) 0.2 % (0.0-2.0); Eosinophils # (auto) 0.2 uL; Eosinophils % (auto) 1.6 % (0.0-7.0); Hematocrit 30.1 % (36.0-46.0); Hemoglobin 10.4 g/dL (12.2-16.2); Lymphocytes % (auto) 9.8 % (10.0-50.0); Mean Corpuscular Hemoglobin 30.4 pg (28.0-32.0); Mean Corpuscular Hgb Conc. 34.6 g/dL (32.0-36.0); Mean Platelet Volume 8.1 fL (7.4-10.4); Monocytes % (auto) 10.2 % (0.0-12.0); Neutrophils # (auto) 8.1 uL; Neutrophils % (auto) 78.2 % (37.0-80.0); Platelet Count (auto) 218 10^3/uL (140-450); Red Cell Distribution Width 13.8 % (11.6-16.0); White Blood Cell 10.3 10^3/uL (4.4-10.8)
[2016-09-04 23:02] LABS: Albumin 2.7 g/dL (3.4-5.0); BUN/Creatinine Ratio 11.6; Calcium 7.8 mg/dL (8.5-10.1); Potassium 4.1 mmol/L (3.5-5.1)
[2016-09-04 23:05] LABS: Bilirubin, Total 0.8 mg/dL (0.2-1.0); Total Protein 6.6 g/dL (6.4-8.2)
[2016-09-05] MEDS: IPRATROPIUM BROM 0.5 MG/2.5ML INH SOL NEB SCH ×4 (00:36→18:44)
[2016-09-05] MEDS: InsuLIN REG 1unit/0.01ml Soln (100units/ml) SC SCH ×5 (04:12→21:28)
[2016-09-05] MEDS: ACCU-CHEK COMFORT CURVE STRIP VI SCH ×6 (04:15→23:59)
[2016-09-05 05:05] VITALS: BP 154/65
[2016-09-05] MEDS: NYSTATIN TOPICAL POWDER 15GM TOP SCH ×3 (05:26→22:00)
[2016-09-05] MEDS: SODIUM CHLOR 0.9% PF (SALINE LOCK) 10ML VIAL IV SCH ×3 (05:26→23:14)
[2016-09-05] MEDS: AMIODARONE HCL 200 MG TAB PO SCH ×3 (05:27→23:15)
[2016-09-05 06:06] LABS: Basophils # (auto) 0 uL; Basophils % (auto) 0.4 % (0.0-2.0); Eosinophils # (auto) 0.2 uL; Eosinophils % (auto) 1.6 % (0.0-7.0); Hematocrit 29.8 % (36.0-46.0); Hemoglobin 10.1 g/dL (12.2-16.2); Lymphocytes # (auto) 1.2 uL; Lymphocytes % (auto) 12.5 % (10.0-50.0); Mean Corpuscular Hemoglobin 30.2 pg (28.0-32.0); Mean Corpuscular Hgb Conc. 33.8 g/dL (32.0-36.0); Mean Corpuscular Volume 89.3 fL (80.0-100.0); Mean Platelet Volume 8.1 fL (7.4-10.4); Monocytes % (auto) 10.8 % (0.0-12.0); Neutrophils % (auto) 74.7 % (37.0-80.0); Platelet Count (auto) 222 10^3/uL (140-450); Red Cell Distribution Width 14.1 % (11.6-16.0); White Blood Cell 9.4 10^3/uL (4.4-10.8)
[2016-09-05 06:36] LABS: Albumin 2.6 g/dL (3.4-5.0); BUN/Creatinine Ratio 12.6; Bilirubin, Total 0.7 mg/dL (0.2-1.0); Calcium 8.3 mg/dL (8.5-10.1); Potassium 3.9 mmol/L (3.5-5.1); Total Protein 6.5 g/dL (6.4-8.2)
[2016-09-05] MEDS: PRO-STAT 64 30ML PO SCH ×2 (08:00→18:00)
[2016-09-05 09:00] VITALS: BP 138/58
[2016-09-05] MEDS: BUMETANIDE (0.25 MG/ML) INJ 10ML IV SCH (10:00)
[2016-09-05] MEDS: POTASSIUM CHL 10% (20 MEQ/15ML) ORAL SOLN PO SCH (10:00)
[2016-09-05] MEDS: NIFEdipine ER 30 MG TAB PO SCH (10:19)
[2016-09-05] MEDS: ENOXAPARIN SOD 30 MG/0.3 ML SYRINGE SC SCH (10:20)
[2016-09-05] MEDS: METOPROLOL SUCCINATE XL 50 MG TAB PO SCH (10:20)
[2016-09-05] MEDS: PANTOPRAZOLE SODIUM 40 MG/10 ML VIAL IV SCH (10:20)
[2016-09-05] MEDS: ASPirin 81 mg TAB PO SCH (10:20)
[2016-09-05] MEDS: NITROGLYCERIN 0.2MG/HR TOPICAL PATCH TD SCH (10:21)
[2016-09-05] MEDS: LEVOFLOXACIN 500MG 100 ML IV SCH (10:21)
[2016-09-05] MEDS ORDERED: VANCOMYCIN 1GM/250ML D5W 250 ML IV ONE (11:00)
[2016-09-05 13:00] VITALS: BP 144/67
[2016-09-05] MEDS: HYDROcodone-ACET 5/325MG TAB PO PRN (15:07)
[2016-09-05 17:00] VITALS: BP 136/65
[2016-09-05 22:00] VITALS: BP 137/57
[2016-09-05] MEDS: ATORVASTATIN 20 MG TAB PO SCH (23:14)
[2016-09-05] MEDS: INSULIN DETEMIR(LEVEMIR) 1unit/0.01ml Soln (100units/ml) SC SCH (23:28)
[2016-09-06] MEDS: IPRATROPIUM BROM 0.5 MG/2.5ML INH SOL NEB SCH ×4 (00:15→18:40)
[2016-09-06] MEDS: ACCU-CHEK COMFORT CURVE STRIP VI SCH ×5 (04:32→20:00)
[2016-09-06] MEDS: InsuLIN REG 1unit/0.01ml Soln (100units/ml) SC SCH ×6 (04:35→20:20)
[2016-09-06 05:00] VITALS: BP 135/60
[2016-09-06] MEDS: NYSTATIN TOPICAL POWDER 15GM TOP SCH ×3 (05:40→23:28)
[2016-09-06] MEDS: AMIODARONE HCL 200 MG TAB PO SCH ×3 (05:53→23:17)
[2016-09-06] MEDS: SODIUM CHLOR 0.9% PF (SALINE LOCK) 10ML VIAL IV SCH ×3 (05:55→23:36)
[2016-09-06 06:31] LABS: Basophils # (auto) 0 uL; Basophils % (auto) 0.3 % (0.0-2.0); Eosinophils # (auto) 0.1 uL; Eosinophils % (auto) 1.9 % (0.0-7.0); Lymphocytes # (auto) 1.4 uL; Lymphocytes % (auto) 18.8 % (10.0-50.0); Mean Corpuscular Hemoglobin 30.6 pg (28.0-32.0); Mean Corpuscular Hgb Conc. 34.4 g/dL (32.0-36.0); Mean Platelet Volume 7.9 fL (7.4-10.4); Monocytes % (auto) 12.6 % (0.0-12.0); Neutrophils # (auto) 5.1 uL; Neutrophils % (auto) 66.4 % (37.0-80.0); Platelet Count (auto) 262 10^3/uL (140-450); Red Cell Distribution Width 13.7 % (11.6-16.0); White Blood Cell 7.7 10^3/uL (4.4-10.8)
[2016-09-06 06:49] LABS: BUN/Creatinine Ratio 12.6; Calcium 8.2 mg/dL (8.5-10.1)
[2016-09-06] MEDS: PRO-STAT 64 30ML PO SCH (08:00)
[2016-09-06] MEDS: HYDROcodone-ACET 5/325MG TAB PO PRN (08:59)
[2016-09-06 09:00] VITALS: BP 130/52
[2016-09-06] MEDS: ENOXAPARIN SOD 30 MG/0.3 ML SYRINGE SC SCH (10:57)
[2016-09-06] MEDS: BUMETANIDE (0.25 MG/ML) INJ 10ML IV SCH (10:57)
[2016-09-06] MEDS: ASPirin 81 mg TAB PO SCH (10:58)
[2016-09-06] MEDS: NIFEdipine ER 30 MG TAB PO SCH (10:58)
[2016-09-06] MEDS: PANTOPRAZOLE SODIUM 40 MG/10 ML VIAL IV SCH (10:59)
[2016-09-06] MEDS: METOPROLOL SUCCINATE XL 50 MG TAB PO SCH (10:59)
[2016-09-06] MEDS: POTASSIUM CHL 10% (20 MEQ/15ML) ORAL SOLN PO SCH (11:00)
[2016-09-06] MEDS: NITROGLYCERIN 0.2MG/HR TOPICAL PATCH TD SCH (11:01)
[2016-09-06 13:00] VITALS: BP 141/65
[2016-09-06 15:28] VITALS: BP 141/65
[2016-09-06 17:46] VITALS: BP 128/64
[2016-09-06 22:55] VITALS: BP 124/62
[2016-09-06] MEDS: ATORVASTATIN 20 MG TAB PO SCH (23:17)
[2016-09-06] MEDS: INSULIN DETEMIR(LEVEMIR) 1unit/0.01ml Soln (100units/ml) SC SCH (23:37)
[2016-09-07] VITALS (8 sets, daily range): BP systolic 74–138; BP diastolic 26–75
[2016-09-07] MEDS: IPRATROPIUM BROM 0.5 MG/2.5ML INH SOL NEB SCH ×3 (00:11→19:30)
[2016-09-07] MEDS: ACCU-CHEK COMFORT CURVE STRIP VI SCH ×6 (00:41→21:30)
[2016-09-07] MEDS: InsuLIN REG 1unit/0.01ml Soln (100units/ml) SC SCH ×6 (00:42→22:00)
[2016-09-07] MEDS: SODIUM CHLOR 0.9% PF (SALINE LOCK) 10ML VIAL IV SCH ×3 (06:50→22:28)
[2016-09-07] MEDS: NYSTATIN TOPICAL POWDER 15GM TOP SCH ×3 (06:50→22:28)
[2016-09-07] MEDS: AMIODARONE HCL 200 MG TAB PO SCH ×3 (06:50→22:27)
[2016-09-07] MEDS: PRO-STAT 64 30ML PO SCH ×2 (08:00→18:00)
[2016-09-07 09:34] LABS: Basophils # (auto) 0 uL; Basophils % (auto) 0.7 % (0.0-2.0); Eosinophils # (auto) 0.2 uL; Eosinophils % (auto) 2.1 % (0.0-7.0); Hematocrit 29.4 % (36.0-46.0); Hemoglobin 9.9 g/dL (12.2-16.2); Lymphocytes # (auto) 1.7 uL; Mean Corpuscular Hemoglobin 30.2 pg (28.0-32.0); Mean Corpuscular Hgb Conc. 33.6 g/dL (32.0-36.0); Mean Corpuscular Volume 89.8 fL (80.0-100.0); Mean Platelet Volume 7.5 fL (7.4-10.4); Monocytes % (auto) 13.3 % (0.0-12.0); Neutrophils # (auto) 4.5 uL; Neutrophils % (auto) 60.9 % (37.0-80.0); Platelet Count (auto) 287 10^3/uL (140-450); Red Cell Distribution Width 13.6 % (11.6-16.0); White Blood Cell 7.4 10^3/uL (4.4-10.8)
[2016-09-07 09:47] LABS: INR 1.13 (0.9-1.15); Partial Thromboplastin Time 29.2 sec (22.64-33.71); Prothrombin Time 11.6 sec (9.37-12.3)
[2016-09-07 09:52] LABS: BUN/Creatinine Ratio 13.6; Calcium 8.7 mg/dL (8.5-10.1); Potassium 4.2 mmol/L (3.5-5.1)
[2016-09-07] MEDS: NIFEdipine ER 30 MG TAB PO SCH (10:00)
[2016-09-07] MEDS: NITROGLYCERIN 0.2MG/HR TOPICAL PATCH TD SCH (10:00)
[2016-09-07] MEDS: METOPROLOL SUCCINATE XL 50 MG TAB PO SCH (10:00)
[2016-09-07] MEDS: BUMETANIDE (0.25 MG/ML) INJ 10ML IV SCH (10:00)
[2016-09-07] MEDS: ENOXAPARIN SOD 30 MG/0.3 ML SYRINGE SC SCH (10:04)
[2016-09-07] MEDS: ASPirin 81 mg TAB PO SCH (10:04)
[2016-09-07] MEDS: LEVOFLOXACIN 500MG 100 ML IV SCH (10:05)
[2016-09-07] MEDS: PANTOPRAZOLE SODIUM 40 MG/10 ML VIAL IV SCH (10:05)
[2016-09-07] MEDS: POTASSIUM CHL 10% (20 MEQ/15ML) ORAL SOLN PO SCH (10:07)
[2016-09-07] MEDS ORDERED: EPOETIN ALFA 10,000 UNIT/1 ML VIAL IV ONE (19:30)
[2016-09-07] MEDS: INSULIN DETEMIR(LEVEMIR) 1unit/0.01ml Soln (100units/ml) SC SCH (22:00)
[2016-09-07] MEDS: ATORVASTATIN 20 MG TAB PO SCH (22:28)
[2016-09-08] MEDS: IPRATROPIUM BROM 0.5 MG/2.5ML INH SOL NEB SCH ×5 (00:16→23:37)
[2016-09-08] MEDS: ACCU-CHEK COMFORT CURVE STRIP VI SCH ×6 (04:30→20:00)
[2016-09-08] MEDS: InsuLIN REG 1unit/0.01ml Soln (100units/ml) SC SCH ×6 (04:45→20:00)
[2016-09-08 05:00] VITALS: BP 143/69
[2016-09-08] MEDS: SODIUM CHLOR 0.9% PF (SALINE LOCK) 10ML VIAL IV SCH ×3 (06:00→22:51)
[2016-09-08] MEDS: NYSTATIN TOPICAL POWDER 15GM TOP SCH ×3 (06:00→22:07)
[2016-09-08] MEDS: AMIODARONE HCL 200 MG TAB PO SCH ×3 (07:56→22:06)
[2016-09-08] MEDS: PRO-STAT 64 30ML PO SCH ×2 (08:55→18:00)
[2016-09-08] MEDS: BUMETANIDE (0.25 MG/ML) INJ 10ML IV SCH (09:30)
[2016-09-08] MEDS: ENOXAPARIN SOD 30 MG/0.3 ML SYRINGE SC SCH (09:30)
[2016-09-08] MEDS: PANTOPRAZOLE SODIUM 40 MG/10 ML VIAL IV SCH (09:30)
[2016-09-08] MEDS: ASPirin 81 mg TAB PO SCH (09:31)
[2016-09-08] MEDS: METOPROLOL SUCCINATE XL 50 MG TAB PO SCH (09:31)
[2016-09-08] MEDS: POTASSIUM CHL 10% (20 MEQ/15ML) ORAL SOLN PO SCH (09:31)
[2016-09-08] MEDS: NIFEdipine ER 30 MG TAB PO SCH (09:32)
[2016-09-08] MEDS: NITROGLYCERIN 0.2MG/HR TOPICAL PATCH TD SCH (09:33)
[2016-09-08 10:00] VITALS: BP 155/78
[2016-09-08 10:54] LABS: Albumin 2.9 g/dL (3.4-5.0); BUN/Creatinine Ratio 12.3; Bilirubin, Total 0.7 mg/dL (0.2-1.0); Calcium 9.1 mg/dL (8.5-10.1); Potassium 4.3 mmol/L (3.5-5.1); Total Protein 7.2 g/dL (6.4-8.2)
[2016-09-08 11:00] LABS: Basophils # (auto) 0.1 uL; Basophils % (auto) 1.2 % (0.0-2.0); Eosinophils # (auto) 0.2 uL; Eosinophils % (auto) 2.5 % (0.0-7.0); Hematocrit 30.9 % (36.0-46.0); Hemoglobin 10.4 g/dL (12.2-16.2); Lymphocytes # (auto) 1.6 uL; Lymphocytes % (auto) 26.3 % (10.0-50.0); Mean Corpuscular Hemoglobin 30.3 pg (28.0-32.0); Mean Corpuscular Hgb Conc. 33.8 g/dL (32.0-36.0); Mean Corpuscular Volume 89.5 fL (80.0-100.0); Mean Platelet Volume 7.5 fL (7.4-10.4); Monocytes # (auto) 0.9 uL; Monocytes % (auto) 13.8 % (0.0-12.0); Neutrophils # (auto) 3.5 uL; Neutrophils % (auto) 56.2 % (37.0-80.0); Platelet Count (auto) 300 10^3/uL (140-450); Red Cell Distribution Width 13.7 % (11.6-16.0); White Blood Cell 6.2 10^3/uL (4.4-10.8)
[2016-09-08 14:12] VITALS: BP 118/54
[2016-09-08 17:14] VITALS: BP 123/75
[2016-09-08 22:00] VITALS: BP 121/63
[2016-09-08] MEDS: INSULIN DETEMIR(LEVEMIR) 1unit/0.01ml Soln (100units/ml) SC SCH (22:00)
[2016-09-08] MEDS: ATORVASTATIN 20 MG TAB PO SCH (22:06)
[2016-09-09] MEDS: ACCU-CHEK COMFORT CURVE STRIP VI SCH ×6 (00:18→20:10)
[2016-09-09] MEDS ORDERED: ALBUTEROL SULF 2.5 MG/0.5ML(0.5%) NEB SOLN ONE (02:36)
[2016-09-09] MEDS ORDERED: ALBUTEROL SULF 2.5 MG/0.5ML(0.5%) NEB SOLN NEB ONE (02:45)
[2016-09-09] MEDS: InsuLIN REG 1unit/0.01ml Soln (100units/ml) SC SCH ×6 (04:00→20:00)
[2016-09-09 04:48] VITALS: BP 127/53
[2016-09-09] MEDS: SODIUM CHLOR 0.9% PF (SALINE LOCK) 10ML VIAL IV SCH ×3 (05:09→21:20)
[2016-09-09] MEDS: AMIODARONE HCL 200 MG TAB PO SCH ×3 (05:36→21:20)
[2016-09-09] MEDS: NYSTATIN TOPICAL POWDER 15GM TOP SCH ×3 (05:36→21:21)
[2016-09-09] MEDS: IPRATROPIUM BROM 0.5 MG/2.5ML INH SOL NEB SCH ×5 (06:00→23:34)
[2016-09-09 06:12] LABS: Basophils # (auto) 0.1 uL; Basophils % (auto) 1.5 % (0.0-2.0); Eosinophils # (auto) 0.1 uL; Eosinophils % (auto) 2.1 % (0.0-7.0); Hematocrit 28.4 % (36.0-46.0); Hemoglobin 9.6 g/dL (12.2-16.2); Lymphocytes # (auto) 1.6 uL; Lymphocytes % (auto) 25.5 % (10.0-50.0); Mean Corpuscular Hemoglobin 30.4 pg (28.0-32.0); Mean Corpuscular Hgb Conc. 33.8 g/dL (32.0-36.0); Mean Corpuscular Volume 89.9 fL (80.0-100.0); Mean Platelet Volume 7.1 fL (7.4-10.4); Monocytes # (auto) 0.9 uL; Monocytes % (auto) 13.6 % (0.0-12.0); Neutrophils # (auto) 3.7 uL; Neutrophils % (auto) 57.3 % (37.0-80.0); Platelet Count (auto) 263 10^3/uL (140-450); Red Cell Distribution Width 13.4 % (11.6-16.0); White Blood Cell 6.4 10^3/uL (4.4-10.8)
[2016-09-09 06:39] LABS: Albumin 2.8 g/dL (3.4-5.0); BUN/Creatinine Ratio 12.6; Bilirubin, Total 0.6 mg/dL (0.2-1.0); Calcium 8.8 mg/dL (8.5-10.1); Potassium 4.2 mmol/L (3.5-5.1); Total Protein 6.8 g/dL (6.4-8.2)
[2016-09-09] MEDS: PRO-STAT 64 30ML PO SCH ×2 (08:00→18:00)
[2016-09-09 08:59] VITALS: BP 113/44
[2016-09-09] MEDS: LEVOFLOXACIN 500MG 100 ML IV SCH (10:23)
[2016-09-09] MEDS: BUMETANIDE (0.25 MG/ML) INJ 10ML IV SCH (10:23)
[2016-09-09] MEDS: PANTOPRAZOLE SODIUM 40 MG/10 ML VIAL IV SCH (10:24)
[2016-09-09] MEDS: ENOXAPARIN SOD 30 MG/0.3 ML SYRINGE SC SCH (10:24)
[2016-09-09] MEDS: METOPROLOL SUCCINATE XL 50 MG TAB PO SCH (10:24)
[2016-09-09] MEDS: ASPirin 81 mg TAB PO SCH (10:25)
[2016-09-09] MEDS: SOD CHL 0.45% 1,000 ML IV SCH ×2 (11:24→21:19)
[2016-09-09] MEDS ORDERED: HYDROcodone-ACET 5/325MG TAB PO PRN (11:30)
[2016-09-09 12:48] VITALS: BP 128/59
[2016-09-09] MEDS: PROMETHAZINE HCL 25 MG/ML 1ML IV PRN (15:59)
[2016-09-09 16:44] VITALS: BP 136/62
[2016-09-09] MEDS: ATORVASTATIN 20 MG TAB PO SCH (21:19)
[2016-09-09] MEDS: INSULIN DETEMIR(LEVEMIR) 1unit/0.01ml Soln (100units/ml) SC SCH (21:21)
[2016-09-09 22:00] VITALS: BP 141/69
[2016-09-10] MEDS: InsuLIN REG 1unit/0.01ml Soln (100units/ml) SC SCH ×6 (04:07→23:40)
[2016-09-10] MEDS: ACCU-CHEK COMFORT CURVE STRIP VI SCH ×6 (04:07→20:00)
[2016-09-10 05:00] VITALS: BP 144/60
[2016-09-10 05:24] LABS: Basophils # (auto) 0.1 uL; Basophils % (auto) 1.2 % (0.0-2.0); Eosinophils # (auto) 0.2 uL; Eosinophils % (auto) 2.6 % (0.0-7.0); Hematocrit 26.7 % (36.0-46.0); Hemoglobin 9.1 g/dL (12.2-16.2); Lymphocytes # (auto) 1.7 uL; Lymphocytes % (auto) 24.7 % (10.0-50.0); Mean Corpuscular Hemoglobin 30.8 pg (28.0-32.0); Mean Corpuscular Hgb Conc. 34.3 g/dL (32.0-36.0); Mean Corpuscular Volume 89.9 fL (80.0-100.0); Mean Platelet Volume 7.2 fL (7.4-10.4); Monocytes # (auto) 0.9 uL; Monocytes % (auto) 12.6 % (0.0-12.0); Neutrophils % (auto) 58.9 % (37.0-80.0); Platelet Count (auto) 267 10^3/uL (140-450); Red Cell Distribution Width 13.6 % (11.6-16.0); White Blood Cell 6.8 10^3/uL (4.4-10.8)
[2016-09-10] MEDS: SODIUM CHLOR 0.9% PF (SALINE LOCK) 10ML VIAL IV SCH ×3 (05:33→22:18)
[2016-09-10] MEDS: AMIODARONE HCL 200 MG TAB PO SCH ×3 (05:33→22:19)
[2016-09-10] MEDS: NYSTATIN TOPICAL POWDER 15GM TOP SCH ×3 (05:34→22:20)
[2016-09-10 05:50] LABS: Potassium 3.9 mmol/L (3.5-5.1)
[2016-09-10 05:52] LABS: BUN/Creatinine Ratio 11.1
[2016-09-10] MEDS: IPRATROPIUM BROM 0.5 MG/2.5ML INH SOL NEB SCH ×4 (05:54→23:59)
[2016-09-10] MEDS: SOD CHL 0.45% 1,000 ML IV SCH ×2 (07:05→16:08)
[2016-09-10] MEDS: PRO-STAT 64 30ML PO SCH ×2 (08:23→18:11)
[2016-09-10 09:00] VITALS: BP 155/60
[2016-09-10] MEDS: PANTOPRAZOLE SODIUM 40 MG/10 ML VIAL IV SCH (10:05)
[2016-09-10] MEDS: ASPirin 81 mg TAB PO SCH (10:05)
[2016-09-10] MEDS: METOPROLOL SUCCINATE XL 50 MG TAB PO SCH (10:06)
[2016-09-10] MEDS: BUMETANIDE (0.25 MG/ML) INJ 10ML IV SCH (10:06)
[2016-09-10] MEDS ORDERED: IOHEXOL 300 MG/ML 100ML BOTTLE IJ ONE (12:29)
[2016-09-10] MEDS ORDERED: LIDOCAINE 2%HCL (LOCAL ANESTH.) INJ 20ML MDV ONE (12:33)
[2016-09-10] MEDS ORDERED: fentaNYL CITRATE 100 MCG/2 ML VL ONE (12:57)
[2016-09-10] MEDS ORDERED: MIDAZOLAM HCL 1MG/1ML-2 ML VIAL ONE (12:57)
[2016-09-10 13:00] VITALS: BP 131/69
[2016-09-10] MEDS ORDERED: HEPARIN 1,000 UNITS/ml 1ML VIAL ONE ×2 (13:12→14:18)
[2016-09-10 15:20] VITALS: BP 131/69
[2016-09-10 16:52] VITALS: BP 149/61
[2016-09-10 21:30] VITALS: BP 159/72
[2016-09-10] MEDS: ATORVASTATIN 20 MG TAB PO SCH (22:19)
[2016-09-10] MEDS: ACETAMINOPHEN 500 MG TAB PO PRN (22:40)
[2016-09-10] MEDS: INSULIN DETEMIR(LEVEMIR) 1unit/0.01ml Soln (100units/ml) SC SCH (23:11)
[2016-09-11] MEDS: InsuLIN REG 1unit/0.01ml Soln (100units/ml) SC SCH ×4 (02:40→12:00)
[2016-09-11] MEDS: SOD CHL 0.45% 1,000 ML IV SCH ×2 (02:49→12:45)
[2016-09-11] MEDS: ACCU-CHEK COMFORT CURVE STRIP VI SCH ×4 (04:00→12:00)
[2016-09-11 05:00] VITALS: BP 160/66
[2016-09-11] MEDS: SODIUM CHLOR 0.9% PF (SALINE LOCK) 10ML VIAL IV SCH (05:52)
[2016-09-11] MEDS: AMIODARONE HCL 200 MG TAB PO SCH (05:52)
[2016-09-11] MEDS: NYSTATIN TOPICAL POWDER 15GM TOP SCH (05:53)
[2016-09-11 06:10] LABS: Basophils # (auto) 0.1 uL; Basophils % (auto) 0.9 % (0.0-2.0); Eosinophils # (auto) 0.1 uL; Eosinophils % (auto) 1.5 % (0.0-7.0); Hemoglobin 8.5 g/dL (12.2-16.2); Lymphocytes # (auto) 1.4 uL; Lymphocytes % (auto) 25.1 % (10.0-50.0); Mean Corpuscular Hemoglobin 30.5 pg (28.0-32.0); Mean Corpuscular Volume 89.4 fL (80.0-100.0); Mean Platelet Volume 7.5 fL (7.4-10.4); Monocytes # (auto) 0.7 uL; Monocytes % (auto) 12.7 % (0.0-12.0); Neutrophils # (auto) 3.3 uL; Neutrophils % (auto) 59.8 % (37.0-80.0); Platelet Count (auto) 199 10^3/uL (140-450); Red Cell Distribution Width 13.4 % (11.6-16.0); White Blood Cell 5.6 10^3/uL (4.4-10.8)
[2016-09-11] MEDS: IPRATROPIUM BROM 0.5 MG/2.5ML INH SOL NEB SCH ×2 (06:11→12:00)
[2016-09-11 06:51] LABS: Albumin 2.7 g/dL (3.4-5.0); BUN/Creatinine Ratio 12.5; Bilirubin, Total 0.5 mg/dL (0.2-1.0); Calcium 7.8 mg/dL (8.5-10.1); Potassium 3.9 mmol/L (3.5-5.1); Total Protein 6.3 g/dL (6.4-8.2)
[2016-09-11] MEDS: PRO-STAT 64 30ML PO SCH (08:00)
[2016-09-11 09:00] VITALS: BP 159/64
[2016-09-11] MEDS: BUMETANIDE (0.25 MG/ML) INJ 10ML IV SCH (10:00)
[2016-09-11] MEDS: METOPROLOL SUCCINATE XL 50 MG TAB PO SCH (10:00)
[2016-09-11] MEDS: PANTOPRAZOLE SODIUM 40 MG/10 ML VIAL IV SCH (10:30)
[2016-09-11] MEDS: ASPirin 81 mg TAB PO SCH (10:31)
[2016-09-11] MEDS: LEVOFLOXACIN 500MG 100 ML IV SCH (10:33)
== END 2016-09-11 11:34 | DRG 710 ==
LOC: ER 14:29 → EDUNIT# 14:29 → TELE 14:30 → TELE-WESTW 17:52 → ICU WEST 08-25 13:05 → TELE-CENTR 09-04 16:55
PROVIDERS: ADMIT Internal Medicine; ATTEND Internal Medicine
PROC: 5A09357 Assistance with Respiratory Ventilation, Less than 24 Consecutive Hours, Continuous Positive Airway Pressure (ICD-10-PCS; 2016-08-24)
PROC: 5A1955Z Respiratory Ventilation, Greater than 96 Consecutive Hours (ICD-10-PCS; principal; 2016-08-25)
PROC: 0BH17EZ Insertion of Endotracheal Airway into Trachea, Via Natural or Artificial Opening (ICD-10-PCS; 2016-08-25)
PROC: 5A1D60Z (ICD-10-PCS; 2016-08-28)
PROC: 02H633Z Insertion of Infusion Device into Right Atrium, Percutaneous Approach (ICD-10-PCS; 2016-09-10)
PROC: B2141ZZ Fluoroscopy of Right Heart using Low Osmolar Contrast (ICD-10-PCS; 2016-09-10)
PROC: B244ZZZ Ultrasonography of Right Heart (ICD-10-PCS; 2016-09-10)
DX: A41.9 Sepsis, unspecified organism (principal); N17.0 Acute kidney failure with tubular necrosis; J96.01 Acute respiratory failure with hypoxia; R65.21 Severe sepsis with septic shock; G93.41 Metabolic encephalopathy; E43 Unspecified severe protein-calorie malnutrition; E13.10 Other specified diabetes mellitus with ketoacidosis without coma; J15.211 Pneumonia due to Methicillin susceptible Staphylococcus aureus; I48.91 Unspecified atrial fibrillation; I50.43 Acute on chronic combined systolic (congestive) and diastolic (congestive) heart failure; E66.01 Morbid (severe) obesity due to excess calories; N39.0 Urinary tract infection, site not specified; D64.9 Anemia, unspecified; E11.21 Type 2 diabetes mellitus with diabetic nephropathy; E11.22 Type 2 diabetes mellitus with diabetic chronic kidney disease; E78.5 Hyperlipidemia, unspecified; K76.0 Fatty (change of) liver, not elsewhere classified; N18.6 End stage renal disease; R19.7 Diarrhea, unspecified; R26.9 Unspecified abnormalities of gait and mobility; I13.2 Hypertensive heart and chronic kidney disease with heart failure and with stage 5 chronic kidney disease, or end stage renal disease; N28.0 Ischemia and infarction of kidney; Z82.49 Family history of ischemic heart disease and other diseases of the circulatory system; Z79.899 Other long term (current) drug therapy; Z83.3 Family history of diabetes mellitus; Z99.2 Dependence on renal dialysis; Z68.44 Body mass index [BMI] 60.0-69.9, adult; Z87.891 Personal history of nicotine dependence; Z90.49 Acquired absence of other specified parts of digestive tract
CPT/HCPCS: 36415; 36600; 70450; 71010; 76937; 76942; 77002; 80048; 80053; 80061; 80076; 80202; 81001; 82150; 82270; 82378; 82550; 82805; 82962; 83036; 83605; 83690; 83735; 83880; 84443; 84484; 85007; 85014; 85018; 85025; 85027; 85045; 85610; 85652; 85730; 86141; 86850; 86900; 86901; 87040; 87070; 87077; 87081; 87086; 87186; 87205; 87400; 87493; 90935; 93005; 93306; 93886; 94002; 94003; 94640; 94660; 95819; 96365; 96367; 96372; 97110; 97116; 97530; C9113; G0434; J0330; J0696; J0885; J1642; J1815; J1956; J2250; J2543; J2704; J3010; J3490; J7060

== ENCOUNTER 2017-09-30 19:44 | Emergency (ER) | payer MEDICAID ==
[~2017-09-30] VITALS: Ht 167.6 cm; Wt 158.8 kg
[~2017-09-30 19:44] MED LIST changes: +ASPI81CH43 PO; +BENA20TA14 PO; -BISO5TAB23; +INSUINJ IJ; +INSUINJ49 SC; -INSUPOW; +METO25TA62 PO; -NORVAS
[2017-09-30] MEDS ORDERED: GLUCAGON HYDROCHLORIDE (RDNA) 1 MG VIAL IM ONE (20:30)
[2017-09-30 21:33] LABS: Basophils % (auto) 0.6 % (0.0-2.0); Lymphocytes # (auto) 2.4 uL; Lymphocytes % (auto) 32.4 % (10.0-50.0); Monocytes % (auto) 8.1 % (0.0-12.0); Neutrophils # (auto) 4.3 uL; Neutrophils % (auto) 56.9 % (37.0-80.0); White Blood Cell 7.5 10^3/uL (4.4-10.8)
[2017-09-30 21:34] LABS: Basophils # (auto) 0 uL; Eosinophils # (auto) 0.1 uL; Hematocrit 37.7 % (36.0-46.0); Hemoglobin 12.7 g/dL (12.2-16.2); Mean Corpuscular Hemoglobin 30.8 pg (28.0-32.0); Mean Corpuscular Hgb Conc. 33.7 g/dL (32.0-36.0); Mean Corpuscular Volume 91.2 fL (80.0-100.0); Monocytes # (auto) 0.6 uL; Platelet Count (auto) 187 10^3/uL (140-450); Red Blood Cells 4.13 10^6/uL (4.0-5.20); Red Cell Distribution Width 14.6 % (11.8-14.3)
[2017-09-30 21:36] LABS: Alanine Aminotransferase 17 U/L (13-56); Albumin 3.5 g/dL (3.4-5.0); Anion Gap 10 (5-15); Aspartate Aminotransferase 15 U/L (15-37); BUN/Creatinine Ratio 18.6; Blood Urea Nitrogen 41 mg/dL (7-18); Calcium 9.1 mg/dL (8.5-10.1); Carbon Dioxide 20 mmol/L (21-32); Chloride 108 mmol/L (98-107); GFR African American 29 mL/min; GFR Non-African American 24 mL/min; Glucose 220 mg/dL (74-106); Potassium 4.3 mmol/L (3.5-5.1); Sodium 138 mmol/L (136-145)
[2017-09-30 21:37] LABS: Alkaline Phosphatase 119 U/L (45-117); Bilirubin, Total 0.5 mg/dL (0.2-1.0); Total Protein 7.2 g/dL (6.4-8.2)
[2017-09-30 23:26] VITALS: BP 157/76
== END 2017-10-01 00:09 | disposition home or self-care (01) ==
LOC: EDBD 19:44 → ER 19:53
DX: T18.108S Unspecified foreign body in esophagus causing other injury, sequela (principal); E11.22 Type 2 diabetes mellitus with diabetic chronic kidney disease; I12.9 Hypertensive chronic kidney disease with stage 1 through stage 4 chronic kidney disease, or unspecified chronic kidney disease; N18.9 Chronic kidney disease, unspecified; J44.9 Chronic obstructive pulmonary disease, unspecified; X58.XXXS Exposure to other specified factors, sequela
CPT/HCPCS: 36415; 70360; 71046; 80053; 83880; 84484; 85025; 93005; 96372; 99285; J1610; J7030